=== PATIENT | male | born 1965 | race Caucasian/White ===

== ENCOUNTER 2019-06-26 18:56 | Emergency (ER) | payer OTHER, MEDICAID ==
[~2019-06-26] VITALS: Ht 170.2 cm; Wt 91.2 kg
[2019-06-26 20:02] VITALS: BP 137/101
--- NOTE | 2019-06-26 21:12 | NUR ---
XRAY AT BEDSIDE.
[2019-06-26] MEDS ORDERED: IBUPROFEN 600 MG TABLET PO ONE ×2 (21:19→21:30)
--- NOTE | 2019-06-26 21:25 | NUR ---
PT BROUGHT HIMSELF IN FOR LEFT SHOULDER PAIN AFTER A FALL WHILE TAKING A SHOWER. PAIN 9/10, UNABLE TO DO LUE RANGE OF MOTION. AXO X 4, AMBULATORY WITH HEARING DIFFICULTY. WILL CONTINUE TO MONITOR CLOSELY.
== END 2019-06-26 23:18 | disposition home or self-care (01) ==
LOC: ER 18:56
DX: S40.012A Contusion of left shoulder, initial encounter (principal); Z98.890 Other specified postprocedural states; Z60.2 Problems related to living alone; W01.0XXA Fall on same level from slipping, tripping and stumbling without subsequent striking against object, initial encounter; Y93.E1 Activity, personal bathing and showering; Y92.89 Other specified places as the place of occurrence of the external cause; Y99.8 Other external cause status
CPT/HCPCS: 73030-TC

== ENCOUNTER 2020-07-01 16:20 | Emergency (ER) | payer OTHER, MEDICAID ==
[~2020-07-01] VITALS: Ht 170.2 cm; Wt 92.5 kg
[2020-07-01 16:42] VITALS: BP 119/79
[2020-07-01] MEDS ORDERED: HYDROCODONE/APAP 5/325MG TABLET PO ONE (17:30)
[2020-07-01] MEDS ORDERED: KETOROLAC TROMETHAMINE INJ 60 MG/2 ML VIAL IM ONE (17:30)
[2020-07-01] MEDS ORDERED: DEXAMETHASONE SOD PHOSPHATE 10 MG/ML VIAL IM ONE (17:30)
[2020-07-01] MEDS ORDERED: KETOROLAC TROMETHAMINE INJ 30 MG/ML VIAL ONE (17:39)
[2020-07-01] MEDS ORDERED: DEXAMETHASONE SOD PHOSPHATE 10 MG/ML VIAL ONE (17:40)
[2020-07-01] MEDS ORDERED: HYDROCODONE/APAP 5/325MG TABLET ONE (17:40)
== END 2020-07-01 19:01 | disposition home or self-care (01) ==
LOC: ER 16:28
DX: M54.41 Lumbago with sciatica, right side (principal); H91.90 Unspecified hearing loss, unspecified ear; Z98.890 Other specified postprocedural states; Z60.2 Problems related to living alone
CPT/HCPCS: 72131; 96372 ×2; 99284; J1100; J1885

== ENCOUNTER 2021-08-29 13:37 | Emergency (ER) | payer OTHER ==
[~2021-08-29] VITALS: Ht 170.2 cm; Wt 99.5 kg
--- NOTE | 2021-08-29 13:40 | NUR ---
CALLED FOR ANGELA BUT THE PATIENT IS NOT IN TRIAGE ROOM
--- NOTE | 2021-08-29 13:55 | NUR ---
AAOX3, came to ER C/O LEFT ELBOW PAIN AND SWELLING FOR 2 WEEKS DENIES FALL/TRAUMA/INJURY. Resp is even and unlabored with NAD noted. Skin is warm and dry. No apparent distress noted. Awaiting md for eval.
[2021-08-29 15:13] LABS: BASOPHILS % (AUTO) 0.2 % (0.0-2.0); HEMATOCRIT 39 % (39-51); HEMOGLOBIN 13.4 g/dL (13.5-17.5); LYMPHOCYTES # (AUTO) 1.3 K/uL (0.8-4.8); MEAN CORPUSCULAR HGB CONC 34 g/dl (31.0-36.0); MEAN CORPUSCULAR VOLUME 84 fL (80-96); MONOCYTES # (AUTO) 0.7 K/uL (0.1-1.30); MONOCYTES % (AUTO) 8.3 % (2.0-12.0); NEUTROPHILS # (AUTO) 6.5 K/uL (1.8-8.9); NEUTROPHILS % (AUTO) 75.5 % (43.0-81.0); PLATELET COUNT (AUTO) 177 K/uL (150-450); RED BLOOD CELL COUNT(AUTO) 4.66 MIL/uL (4.5-6.0); WHITE BLOOD COUNT (AUTO) 8.6 K/uL (4.3-11.0)
[2021-08-29 15:14] LABS: CALCIUM, SERUM 8.3 mg/dL (8.5-10.1); CREATININE 1.6 mg/dL (0.6-1.3); POTASSIUM 3.8 mmol/L (3.5-5.1)
[2021-08-29] MEDS ORDERED: ACETAMINOPHEN 325 MG TABLET PO ONE (16:30)
[2021-08-29] MEDS ORDERED: ACETAMINOPHEN ES 500 MG TABLET ONE (16:31)
[2021-08-29 16:36] VITALS: BP 130/81
--- NOTE | 2021-08-29 16:36 | NUR ---
Patient discharged to home in stable condition. Written and verbal after care instructions given. Patient verbalizes understanding of instruction.
== END 2021-08-29 16:37 | disposition home or self-care (01) ==
LOC: ER 13:40
DX: M70.22 Olecranon bursitis, left elbow (principal); I10 Essential (primary) hypertension; E78.5 Hyperlipidemia, unspecified; H91.90 Unspecified hearing loss, unspecified ear; Z98.890 Other specified postprocedural states; Z60.2 Problems related to living alone; Y93.9 Activity, unspecified
CPT/HCPCS: 36415; 73080-TC; 80048-TC; 85025-TC; 85652-TC; 86140-TC

== ENCOUNTER 2021-09-14 09:33 | Emergency (ER) | payer OTHER ==
[~2021-09-14] VITALS: Ht 165.1 cm; Wt 81.6 kg
--- NOTE | 2021-09-14 09:37 | NUR ---
USED [facility] TO OBTAIN REPORT ([id number]). PT C/O WOUND ON L ELBOW X3WEEK. PT IS ON SULFAMETHOX THAT WAS GIVEN ON PREVIOUS ADMISSION. PT STATED TODAY HE STARTED TO FEEL DIAPHORETIC. PT IS A&OX4 AND STABLE. VITAL SIGNS WITHIN NORMAL LIMITS.
--- NOTE | 2021-09-14 09:45 | NUR ---
DR SINGH AT BEDSIDE.
[2021-09-14 10:26] VITALS: BP 126/88
[2021-09-14] MEDS ORDERED: LIDOCAINE 1%-EPI 1:100,000 20 ML VIAL ONE (11:22)
--- NOTE | 2021-09-14 11:45 | NUR ---
DR SINGH AT BEDSIDE TO DRAIN L ELBOW.
--- NOTE | 2021-09-14 12:29 | NUR ---
PT DISCHARGE INSTRUCTIONS GIVE TO PT THROUGH PRESSURE SEALER AND TESTER ([id number]). PT UNDESTOOD INSTRUCTIONS. VITAL SIGNS WITHIN NORMAL LIMITS AND STABLE.
== END 2021-09-14 12:31 | disposition home or self-care (01) ==
LOC: ER 10:15
DX: M70.22 Olecranon bursitis, left elbow (principal); L02.512 Cutaneous abscess of left hand; Z60.2 Problems related to living alone; Y93.89 Activity, other specified
CPT/HCPCS: 10060; 99282; A6403; J3490

== ENCOUNTER 2022-01-24 09:49 | Emergency (ER) | payer OTHER ==
[~2022-01-24] VITALS: Ht 165.1 cm; Wt 95.3 kg
[2022-01-24 09:55] VITALS: BP 143/97
--- NOTE | 2022-01-24 10:13 | NUR ---
PT SEEN AND EXAMINED BY .
[2022-01-24] MEDS ORDERED: NAPR-1192 PO (11:30)
== END 2022-01-24 11:36 | disposition home or self-care (01) ==
LOC: ER 09:51
DX: M54.50 Low back pain, unspecified (principal); M25.552 Pain in left hip
CPT/HCPCS: 72110-TC; 73502

== ENCOUNTER 2022-06-10 10:04 | Emergency (ER) | payer OTHER ==
[~2022-06-10] VITALS: Ht 170.2 cm; Wt 97.1 kg
[~2022-06-10 10:04] MED LIST: NAPR-1192 PO
--- NOTE | 2022-06-10 10:06 | NUR ---
BIBS C/O SORE THORAT, SNEEZING, COUGHING, DIZZINESS SINCE LAST FRIDAY. PT HAS TAKEN OVER THE COUNTER MEDICAITON, NO RELIEF, STATED HE HAS NOT TAKEN A COVID TEST HIM. VITALS ARE WITHIN NORMAL LIMITS, AFEBRILE. DR HENSLEY AT BEDSIDE. [employer] PL[employer]BER #[id number] USED FOR TRIAGING AND EVALUATION.
--- NOTE | 2022-06-10 10:10 | NUR ---
DR HENSLEY AT BEDSIDE FOR EVAL
[2022-06-10] MEDS ORDERED: FLUT16SP16 BNOSTRILS (10:18)
--- NOTE | 2022-06-10 10:28 | NUR ---
COVID SWAB PCR COLLECTED AND SENT TO LAB.
--- NOTE | 2022-06-10 10:31 | NUR ---
Patient discharged to home in stable condition. Written and verbal after care instructions given. Patient verbalizes understanding of instruction.
[2022-06-10 10:33] VITALS: BP 126/74
== END 2022-06-10 10:34 | disposition home or self-care (01) ==
LOC: ER 10:11
DX: U07.1 COVID-19 (principal); J06.9 Acute upper respiratory infection, unspecified
CPT/HCPCS: 99283; U0003; C9803

== ENCOUNTER 2022-07-16 11:39 | Emergency (ER) | payer OTHER ==
[~2022-07-16] VITALS: Ht 170.2 cm; Wt 97.1 kg
[~2022-07-16 11:39] MED LIST changes: +FLUT16SP16 BNOSTRILS
[2022-07-16 11:46] VITALS: BP 128/77
--- NOTE | 2022-07-16 12:17 | NUR ---
Patient discharged to home in stable condition. Written and verbal after care instructions given. Patient verbalizes understanding of instruction.
== END 2022-07-16 12:17 | disposition home or self-care (01) ==
LOC: ER 11:41
DX: R59.1 Generalized enlarged lymph nodes (principal); Z85.028 Personal history of other malignant neoplasm of stomach; Z79.899 Other long term (current) drug therapy

== ENCOUNTER → 2023-03-18 | Emergency (ER) | payer OTHER ==
[~2023-03-18] VITALS: Ht 170.2 cm; Wt 79.4 kg
[~2023-03-18] MED LIST changes: +CYCLOBENZAPRINE 10 MG TABLET ONE; +CYCLOBENZAPRINE 10 MG TABLET PO ONE; +HYDR-4279 PO; +MORPHINE SULFATE INJ 2 MG/ML DISP.SYRIN IV ONE; +MORPHINE SULFATE INJ 4 MG/ML DISP.SYRIN ONE
--- NOTE | 2023-03-18 13:32 | NUR ---
BIBS FOR CHRONIC NECK PAIN X 7D. NO TRAUMA. A/O X 3, ABLE TO MAKE NEEDS KNOWN, TOLERATING WELL ON ROOM AIR.
[2023-03-18 13:40] VITALS: BP 138/94
[2023-03-18 14:31] LABS: BASOPHILS % (AUTO) 0.5 % (0.0-2.0); EOSINOPHILS % (AUTO) 2.5 % (0.0-6.0); HEMATOCRIT 34 % (39-51); HEMOGLOBIN 11.4 g/dL (13.5-17.5); LYMPHOCYTES # (AUTO) 1.2 K/uL (0.8-4.8); LYMPHOCYTES % (AUTO) 22.4 % (20.0-44.0); MEAN CORPUSCULAR HGB CONC 34 g/dl (31.0-36.0); MEAN CORPUSCULAR VOLUME 84 fL (80-96); MONOCYTES # (AUTO) 0.3 K/uL (0.1-1.30); MONOCYTES % (AUTO) 5.9 % (2.0-12.0); NEUTROPHILS # (AUTO) 3.7 K/uL (1.8-8.9); NEUTROPHILS % (AUTO) 68.7 % (43.0-81.0); PLATELET COUNT (AUTO) 177 K/uL (150-450); RED BLOOD CELL COUNT(AUTO) 4.02 MIL/uL (4.5-6.0); WHITE BLOOD COUNT (AUTO) 5.5 K/uL (4.3-11.0)
[2023-03-18 15:22] LABS: CALCIUM, SERUM 8.3 mg/dL (8.5-10.1); POTASSIUM 3.5 mmol/L (3.5-5.1)
== END | disposition home or self-care (01) ==
LOC: ER 13:34
DX: M54.2 Cervicalgia (principal); Z79.899 Other long term (current) drug therapy
CPT/HCPCS: 99283; 96374; 85025; 80048; 36415; J2270

== ENCOUNTER 2023-05-28 02:04 | Emergency (ER) | payer OTHER ==
[~2023-05-28] VITALS: Ht 167.6 cm; Wt 78.0 kg
[~2023-05-28 02:04] MED LIST changes: -CYCLOBENZAPRINE 10 MG TABLET ONE; -CYCLOBENZAPRINE 10 MG TABLET PO ONE; +METH4TAB3 PO; -MORPHINE SULFATE INJ 2 MG/ML DISP.SYRIN IV ONE; -MORPHINE SULFATE INJ 4 MG/ML DISP.SYRIN ONE
[2023-05-28 02:48] VITALS: BP 140/80; TEMP 98.1; O2SAT 99
[2023-05-28] MEDS ORDERED: HYDROCODONE/APAP 10/325MG TABLET ONE (02:53)
--- NOTE | 2023-05-28 02:55 | NUR ---
JOHN FROM HOME C/O CHRONIC NECK PAIN.
[2023-05-28] MEDS ORDERED: KETOROLAC TROMETHAMINE INJ 60 MG/2 ML VIAL IM ONE (03:00)
[2023-05-28] MEDS ORDERED: CYCLOBENZAPRINE 10 MG TABLET PO ONE (03:00)
[2023-05-28] MEDS ORDERED: HYDROCODONE/APAP 10/325MG TABLET PO ONE (03:00)
[2023-05-28] MEDS ORDERED: KETOROLAC TROMETHAMINE INJ 30 MG/ML VIAL ONE (03:02)
[2023-05-28] MEDS ORDERED: CYCLOBENZAPRINE 10 MG TABLET ONE (03:02)
--- NOTE | 2023-05-28 03:09 | NUR ---
Patient discharged to home in stable condition. Written and verbal after care instructions given. Patient verbalizes understanding of instruction.
== END 2023-05-28 03:10 | disposition home or self-care (01) ==
LOC: ER 02:05
DX: G89.29 Other chronic pain (principal); Z79.899 Other long term (current) drug therapy
CPT/HCPCS: 99283; 96372; J1885